=== PATIENT | male | born 1965 | race Caucasian/White ===

== ENCOUNTER 2018-03-15 23:09 | Observation (INO) ==
[2018-03-15 23:24] LABS: Basophils # 0.1 K/mm3 (0-0.2); Basophils % 1.2 % (0.1-2.0); Eosinophils # 0.3 K/mm3 (0.0-0.4); Eosinophils % 5.3 % (0.1-12.0); Hematocrit 43.6 % (42.0-52.0); Hemoglobin 15.5 g/dL (14.1-18.0); Lymphocytes # 1.9 K/mm3 (0.7-4.5); Lymphocytes % 35.8 K/mm3 (10-50); Mean Corpuscular HGB Conc 35.5 g/dL (31.8-35.4); Mean Corpuscular Hemoglobin 33.5 pg (27.0-31.2); Mean Corpuscular Volume 94.2 fl (80-94); Mean Platelet Volume 7.3 fl (7.4-10.4); Monocytes # 0.5 K/mm3 (0.1-1.0); Monocytes % 9.9 % (1.7-9.3); Neutrophils # 2.5 K/mm3 (1.8-7.8); Neutrophils % 47.8 % (37.0-80.0); Platelet Count 238 K/mm3 (142-424); Red Blood Count 4.63 M/mm3 (4.60-6.20); Red Cell Distribution Width 13.1 % (11.5-17.5); White Blood Count 5.3 K/mm3 (4.8-10.8)
[2018-03-15 23:43] LABS: Blood Urea Nitrogen 7 mg/dL (7-18); Carbon Dioxide 26 mmol/L (21.0-32.0); Chloride 93 mmol/L (98-107); Glucose 111 mg/dL (74-106); Sodium 129 mmol/L (136-145)
--- NOTE | 2018-03-16 00:28 | Emergency Department Note ---
ED Disposition Clinical Impression: Tobacco use Chest pain Qualifiers: Chest pain type: precordial pain Qualified Code(s): R07.2 - Precordial pain Disposition: Admitted as Observation Condition on Discharge: Good - Critical Care Critical Care Time: No Attestation: On 03/15/18, the high probability of a clinically significant, sudden or life threatening deterioration of the following system(s) required my full and direct attention, intervention and personal management. The time I documented below is in addition to time spent performing reported procedures but includes the following listed in this critical care notation. Medical Decision Making - Medical Records Medical records reviewed: Yes: I reviewed the patient's medical records. - Dick Inquiry Pt receiving controlled substance: No Vital Signs: 03/15/18 23:09 03/15/18 23:12 Temperature 98.3 F Temperature Source Oral Pulse Rate 80 Pulse Rate [Right Brachial] 74 Respiratory Rate 16 Blood Pressure [Right Arm] 103/58 Blood Pressure Mean [Right Arm] 73 Blood Pressure Source [Right Arm] Automatic Cuff Blood Pressure Position [Right Arm] Sitting 02 Sat by Pulse Oximetry 96 Oxygen Delivery Method Room Air - Lab Data Lab results reviewed: Yes: I reviewed the patient's lab results. Lab Results 03/15/18 23:20: WBC 5.3, RBC 4.63, Hgb 15.5, Hct 43.6, MCV 94.2 H, MCH 33.5 H, MCHC 35.5 H, RDW 13.1, Plt Count 238, MPV 7.3 L, Neut % (Auto) 47.8, Lymph % ( Auto) 35.8, [place] % (Auto) 9.9 H, Eos % (Auto) 5.3, Baso % (Auto) 1.2, Neut # ( Auto) 2.5, Lymph # (Auto) 1.9, [place] # (Auto) 0.5, Eos # (Auto) 0.3, Baso # (Auto ) 0.1 03/15/18 23:20: Sodium 129 L, Potassium 4.0, Chloride 93 L, Carbon Dioxide 26, Anion Gap 14.0, BUN 7, Creatinine 0.82, Estimated Creat Clear 87, Estimated GFR 99, Est GFR ( Amer) 120, Glucose 111 H, Troponin I < 0.02 Result diagrams: 03/15/18 23:20 03/15/18 23:20 Orders (Tests/Meds): ORDERS Category Date Time Status XR chest 2V Stat Exams 03/15/18 23:10 Taken ECG Request by /Susan Stat Y 03/15/18 23:10 Ordered - Radiology Data #1 Image(s): Chest Image Reviewed: Yes I reviewed the patient's radiology image Preliminary Findings: Abnormal (copd) - ECG Data Tracing #1 I reviewed this ECG and interpreted as documented below: Normal Sinus Rhythm: Yes Ischemic changes: non-specific ST-T wave changes Chest Pain HPI - General Chief Complaint: Chest Pain Stated Complaint: chest pain Time Seen by Provider: 03/15/18 23:20 Mode of Arrival: Ambulatory Source of Information: Patient, Significant Other, Medical Record Limitations: No Limitations Description of Symptoms (Recalled from ER Triage Doc. by RN): cp that started 9 this morning, radiating to left arm. took 325mg of asa at home. - History of Present Illness HPI narrative: pt with ongoing episodes of chest tightness over the last few weeks inc today MD complaint: chest pain indicative of cardiac Onset (ago): day(s) Duration: now resolved Activity at onset: during rest Pain location: left chest Severity: moderate Quality: tightness Associated symptoms: dyspnea Risk Factors for CAD: Family Hx of CAD, Smoking Treatments prior to or on arrival for Cardiac Chest Pain: aspirin - JEFFRY Score Non-Stemi Age of patient: Less than 65 yrs Number of risk factors for CAD: Presence of 3 or more Prior coronary artery stenosis(seen in coronary angiography): Less than 50% ST-Segment deviation on ECG (more than 1 min): Absent Prior aspirin intake: ASA intake in the last 7 days Severe anginal chest pain: Two or more episodes in last 24 hours Elevated cardiac markers(CK-MB or troponin): Absent Non-Stemi Risk Score: 3 - Related Data Home Medications Medication Instructions Recorded Confirmed No Known Home Medications 03/15/18 03/15/18 Allergies Allergy/AdvReac Type Severity Reaction Status Date / Time No Known Allergies Allergy Verified 03/15/18 23:14 [facility] History I have reviewed the patient's past medical history: Yes Medical History: Denies:: Cancer, Diabetes Mellitus Type 1, Diabetes Mellitus Type 2, MRSA Amputation: No Fractures: No - Social History Educational Level: Completed Grade School Smoking Status: Current every day smoker Tobacco Type: cigarettes Alcohol Intake: never - Psychiatric History Expresses thoughts of harming self/others: None Suicide Plan Description: No Plan ROS Obtained: Yes All systems reviewed & no additional complaints - Constitutional Constitutional: Denies fever(s) - Eyes Eyes: Denies change in vision - ENT Ears, Nose, Mouth, and Throat: Denies sore throat - Cardiovascular Cardiovascular: Reports chest pain, Reports chest pain at rest - Respiratory Respiratory: No cough, No coughing up blood - Gastrointestinal Gastrointestingal: Denies: abdominal pain - Genitourinary Male Genitourinary: Denies hematuria - Musculoskeletal Musculoskeletal: Denies joint pain, Denies joint swelling - Integumentary/Breasts Skin/Breast: Denies rash - Neurologic Neurologic: Denies seizure-like activity Physical Exam - General General appearance: in no apparent distress - Head Head exam: normocephalic - Eye Eye exam: Present: PERRL, EOMI. Absent: scleral icterus - ENT ENT exam: Present: mucous membranes moist - Neck Neck exam: Present: trachea midline - Respiratory Respiratory exam: Present: normal lung sounds bilaterally. Absent: respiratory distress - Cardiovascular Cardiovascular exam: Present: regular rate, systolic murmur. Absent: rubs, gallop - Abdominal Exam Abdominal exam: Present: soft - Extremities Exam Extremities exam: Absent: calf tenderness - Neurological Exam Neurological exam: Present: alert, oriented X3, CN II-XII intact - Psychiatric Psychiatric exam: Present: normal affect - Skin Skin exam: Absent: rash
[2018-03-16 06:57] LABS: Basophils # 0.1 K/mm3 (0-0.2); Basophils % 1.3 % (0.1-2.0); Eosinophils # 0.3 K/mm3 (0.0-0.4); Eosinophils % 6.9 % (0.1-12.0); Hematocrit 41.9 % (42.0-52.0); Hemoglobin 14.3 g/dL (14.1-18.0); Lymphocytes # 1.4 K/mm3 (0.7-4.5); Lymphocytes % 32.7 K/mm3 (10-50); Mean Corpuscular HGB Conc 34.1 g/dL (31.8-35.4); Mean Corpuscular Hemoglobin 32.4 pg (27.0-31.2); Mean Corpuscular Volume 94.8 fl (80-94); Mean Platelet Volume 7.7 fl (7.4-10.4); Monocytes # 0.5 K/mm3 (0.1-1.0); Neutrophils % 47.1 % (37.0-80.0); Platelet Count 213 K/mm3 (142-424); Red Blood Count 4.42 M/mm3 (4.60-6.20); Red Cell Distribution Width 13.2 % (11.5-17.5); White Blood Count 4.2 K/mm3 (4.8-10.8)
[2018-03-16 07:06] LABS: INR 0.98 (0.9-1.1); Prothrombin Time 10.6 seconds (9.4-11.8)
--- NOTE | 2018-03-16 07:14 | Pharmacy Consult Notes ---
[facility] Pharmacy VTE Monitoring - Patient Demographics Admission date: 03/15/18 Report Date: 03/16/18 Time: 07:14 Allergies/Adverse Reactions: Patient Allergies No Known Allergies Allergy (Verified 03/15/18 23:14) Height: 1.68 m Weight: 55.565 kg Patient Problems: Current Active Problems Chest pain (Acute) Tobacco use (Acute) - VTE Risk Labs: VTE Related Lab Results Hgb 14.3 g/dL (14.1-18.0) 03/16/18 06:19 Hct 41.9 % (42.0-52.0) L 03/16/18 06:19 Plt Count 213 K/mm3 (142-424) 03/16/18 06:19 PT 10.6 seconds (9.4-11.8) 03/16/18 06:19 INR 0.98 (0.9-1.1) 03/16/18 06:19 BUN 7 mg/dL (7-18) 03/15/18 23:20 Creatinine 0.82 mg/dL (0.70-1.30) 03/15/18 23:20 Estimated Creat Clear 87 mL/min (0-300) 03/15/18 23:20 VTE Score: 0 Clinical Trial Participant: No - Prophylaxis VTE Prophylaxis Ordered?: Yes Types of VTE Prophylaxis: TEDS Knee High
[2018-03-16 07:16] LABS: Anion Gap 16.1 mEq/L (5-15); Blood Urea Nitrogen 6 mg/dL (7-18); Carbon Dioxide 25 mmol/L (21.0-32.0); Chloride 99 mmol/L (98-107); Glucose 84 mg/dL (74-106); Potassium 4.1 mmoL/L (3.5-5.1); Sodium 136 mmol/L (136-145)
--- NOTE | 2018-03-16 08:21 | Consult Report ---
History of Present Illness Consult date: 03/16/18 Requesting physician: Pantera Ray Consult reason: chest pain Chief complaint: chest pain Additional Medical History:: 1. Tobacco use since age 22, 1 pack per day 2. Social alcohol use on the weekends 3. Family history of heart disease in his mother in her mid 60s History of present illness: 52-year-old white male with tobacco use resented to the emergency department for recurrent episodes of chest tightness, squeezing with associated shortness of breath. Symptoms have been associated with exertion and resolved with rest or aspirin use. EKG in the emergency department showed sinus rhythm with poor R -wave progression anteriorly, question anteroseptal infarct, without acute ST segment changes. Patient was admitted overnight due to improvement/resolution of symptoms with nitroglycerin paste. No further episodes of chest pain or shortness of breath overnight. Cardiac troponins have been normal overnight. Cardiology consulted for further evaluation recommendations. [facility] History Medical History: Denies:: Cancer, Diabetes Mellitus Type 1, Diabetes Mellitus Type 2, MRSA Amputation: No Fractures: No - *Social History Educational Level: Completed Grade School Smoking Status: Current every day smoker Tobacco Type: cigarettes # Packs/Day (cigarettes): 1 Alcohol Intake: current Alcohol Intake Frequency:: a few times a week Occupational Status: employed - Psychiatric History Expresses thoughts of harming self/others: None Suicide Plan Description: No Plan Meds Home Medications Medication Instructions Recorded Confirmed Type No Known Home Medications 03/15/18 03/15/18 History Allergies Allergy/AdvReac Type Severity Reaction Status Date / Time No Known Allergies Allergy Verified 03/15/18 23:14 Review of Systems - *Cardiovascular Reports chest pain, Reports shortness of breath with activity - *Respiratory Reports shortness of breath with activity - *Gastrointestinal Denies abdominal pain - *Musculoskeletal Comments: Some right wrist discomfort after recent injury while working on a car. - *Neurologic Denies seizure-like activity Exam Vital signs and Labs for Last 24 Hours: Temp Pulse Resp BP Pulse Ox 97.7 F 78 15 113/66 96 03/16/18 04:00 03/16/18 04:00 03/16/18 04:00 03/16/18 04:00 03/16/18 04:00 Laboratory Results - last 24 hr 03/15/18 23:20: WBC 5.3, RBC 4.63, Hgb 15.5, Hct 43.6, MCV 94.2 H, MCH 33.5 H, MCHC 35.5 H, RDW 13.1, Plt Count 238, MPV 7.3 L, Neut % (Auto) 47.8, Lymph % ( Auto) 35.8, [place] % (Auto) 9.9 H, Eos % (Auto) 5.3, Baso % (Auto) 1.2, Neut # ( Auto) 2.5, Lymph # (Auto) 1.9, [place] # (Auto) 0.5, Eos # (Auto) 0.3, Baso # (Auto ) 0.1 03/15/18 23:20: Sodium 129 L, Potassium 4.0, Chloride 93 L, Carbon Dioxide 26, Anion Gap 14.0, BUN 7, Creatinine 0.82, Estimated Creat Clear 87, Estimated GFR 99, Est GFR ( Amer) 120, Glucose 111 H, Troponin I < 0.02 03/16/18 01:10: Troponin I < 0.02 03/16/18 04:00: Troponin I < 0.02 03/16/18 06:19: WBC 4.2 L, RBC 4.42 L, Hgb 14.3, Hct 41.9 L, MCV 94.8 H, MCH 32.4 H, MCHC 34.1, RDW 13.2, Plt Count 213, MPV 7.7, Neut % (Auto) 47.1, Lymph % (Auto) 32.7, [place] % (Auto) 12.0 H, Eos % (Auto) 6.9, Baso % (Auto) 1.3, Neut # (Auto) 2.0, Lymph # (Auto) 1.4, [place] # (Auto) 0.5, Eos # (Auto) 0.3, Baso # ( Auto) 0.1 03/16/18 06:19: PT 10.6, INR 0.98 03/16/18 06:19: Sodium 136, Potassium 4.1, Chloride 99, Carbon Dioxide 25, Anion Gap 16.1 H, BUN 6 L, Creatinine 0.67 L, Estimated Creat Clear 104, Estimated GFR 126, Est GFR ( Amer) 152 D, Glucose 84 D, Magnesium 2.2, Troponin I < 0.02 I & O for Last 24 hours: Intake & Output 03/13/18 03/14/18 03/15/18 03/16/18 11:59 11:59 11:59 11:59 Weight 122 lb 8 oz - *Routine Neck Exam Absent: JVD, carotid bruit - *Routine Respiratory Exam Present: decreased breath sounds, rhonchi, diminished air movement - *Routine Cardiovascular Exam Present: RRR. Absent: murmur, gallop, rubs - *Routine Extremities Exam Absent: edema - *Routine Neurological Exam Present: alert, oriented X3, moving all extremities Assessment and Plan (1) Chest pain Current visit: Yes Status: Acute Qualifiers: Chest pain type: precordial pain Qualified Code(s): R07.2 - Precordial pain Category: Medical Code(s): R07.9 - Chest pain, unspecified (2) Tobacco use Current visit: Yes Status: Acute Category: Social Hx Code(s): Z72.0 - Tobacco use - Assessment and plan all Dx Assessment and Plan for all problems:: 1. Chest pain with normal troponins with abnormal EKG. Patient does not take any medication on a regular basis and blood pressure is well controlled with systolic blood pressure in the 100-110 mmHg reading which does not allow for antianginal medication use. With the patient's tobacco use history and family history of heart disease with his exertion related symptoms to resolve with rest , aspirin or nitroglycerin, then would recommend proceeding with left heart catheterization. Risk and benefits discussed with patient and he agrees to proceed today. 2. Further recommendations to follow pending above.
--- NOTE | 2018-03-16 11:57 | Cardiology Report ---
PROCEDURE: 2-D M-mode and color Doppler study INDICATIONS FOR THE TEST: Chest pain+ COPD Heart Murmur Tobacco Smoking+ Palpitations Fatigue Syncope Edema Hypertension Diabetes Mellitus Rheumatic Fever SOB+MORGAN Obesity Hyperlipidemia Family History HD Additional History PATIENT INFORMATION HEIGHT:66 WEIGHT:126 GENDER: Male B/P:103/58 2-D/M-MODE INTERPRETATION: 2-D MEASUREMENTS OBSERVED VALUES IN CMS Right Ventricular Dimension (RVDd) 2.5 Interventricular Septum (Thickness)(IVsd) 0.9 Left Ventricular Internal Dimensions(LVIDd) 4.8 Left Ventricular Posterior Wall (Thickness)(LVPWd) 0.6 Aortic Root 2.2 Aortic Cusp Separation 1.8 Left Atrial Dimensions (LAD) 3.7 2D 1. Left atrium is normal size, left ventricle is normal size, there is no concentric left ventricular hypertrophy, visually estimated ejection fraction 55% with no obvious regional wall motion abnormality. 2. The right atrium and right ventricle are normal size and contractility. 3. The aortic, mitral and tricuspid valve are grossly normal. 4. The pulmonic valve is poorly visualized. 5. No significant pericardial effusion noted. DOPPLER INTERROGATION: Doppler interrogation of the aortic, mitral and tricuspid valvular presence of mild mitral and tricuspid regurgitation, tricuspid and jet velocity is insufficient for calculation of the right ventricular systolic pressure, diastolic parameters are within normal range. CONCLUSION: 1. Normal left ventricular size, preserved left ventricular systolic function, visually estimated ejection fraction 55% with no obvious regional wall motion abnormality, diastolic parameters are within normal range. 2. Mild mitral and tricuspid regurgitation. 3. No significant pericardial effusion noted.
--- NOTE | 2018-03-16 15:37 | H&P/Discharge Summary ---
General - General Admission date:: 03/16/18 Discharge date: 03/16/18 *Admission Date: 03/15/18 *Chief complaint: chest pain *History of present illness: 52-year-old white male with tobacco use resented to the emergency department for recurrent episodes of chest tightness, squeezing with associated shortness of breath. Symptoms have been associated with exertion and resolved with rest or aspirin use. EKG in the emergency department showed sinus rhythm with poor R -wave progression anteriorly, question anteroseptal infarct, without acute ST segment changes. Patient was admitted overnight due to improvement/resolution of symptoms with nitroglycerin paste. No further episodes of chest pain or shortness of breath overnight. Cardiac troponins have been normal overnight. Cardiology consulted for further evaluation recommendations. [facility] History I have reviewed the patient's past medical history: Yes Medical History: Denies:: Cancer, Diabetes Mellitus Type 1, Diabetes Mellitus Type 2, MRSA Amputation: No Fractures: No - *Social History Educational Level: Completed Grade School Smoking Status: Current every day smoker Tobacco Type: cigarettes # Packs/Day (cigarettes): 1 Alcohol Intake: current Alcohol Intake Frequency:: a few times a week Occupational Status: employed - Psychiatric History Expresses thoughts of harming self/others: None Suicide Plan Description: No Plan Review of Systems - Review of Systems Review of systems:: pertinent systems reviewed and negative unless documented below - Constitutional Denies fever(s) - Eyes Denies change in vision - ENT Denies change in voice - *Cardiovascular Reports chest pain - *Respiratory Denies chest congestion - *Gastrointestinal Denies vomiting - *Genitourinary Denies urinary urgency - *Musculoskeletal Denies tingling - Integumentary/Breasts Denies rash - *Neurologic Denies seizure-like activity - Psychiatric Denies anxiety - Endocrine Denies flushing - Hematologic/Lymphatic Denies enlarged lymph nodes - Allergic/Immunologic Denies lip swelling Exam Vital signs and Labs for Last 24 Hours: Temp Pulse Resp BP Pulse Ox 97.4 F L 78 18 114/73 96 03/16/18 15:25 03/16/18 15:25 03/16/18 15:25 03/16/18 15:25 03/16/18 15:25 Laboratory Results - last 24 hr 03/15/18 23:20: WBC 5.3, RBC 4.63, Hgb 15.5, Hct 43.6, MCV 94.2 H, MCH 33.5 H, MCHC 35.5 H, RDW 13.1, Plt Count 238, MPV 7.3 L, Neut % (Auto) 47.8, Lymph % ( Auto) 35.8, [place] % (Auto) 9.9 H, Eos % (Auto) 5.3, Baso % (Auto) 1.2, Neut # ( Auto) 2.5, Lymph # (Auto) 1.9, [place] # (Auto) 0.5, Eos # (Auto) 0.3, Baso # (Auto ) 0.1 03/15/18 23:20: Sodium 129 L, Potassium 4.0, Chloride 93 L, Carbon Dioxide 26, Anion Gap 14.0, BUN 7, Creatinine 0.82, Estimated Creat Clear 87, Estimated GFR 99, Est GFR ( Amer) 120, Glucose 111 H, Troponin I < 0.02 03/16/18 01:10: Troponin I < 0.02 03/16/18 04:00: Troponin I < 0.02 03/16/18 06:19: WBC 4.2 L, RBC 4.42 L, Hgb 14.3, Hct 41.9 L, MCV 94.8 H, MCH 32.4 H, MCHC 34.1, RDW 13.2, Plt Count 213, MPV 7.7, Neut % (Auto) 47.1, Lymph % (Auto) 32.7, [place] % (Auto) 12.0 H, Eos % (Auto) 6.9, Baso % (Auto) 1.3, Neut # (Auto) 2.0, Lymph # (Auto) 1.4, [place] # (Auto) 0.5, Eos # (Auto) 0.3, Baso # ( Auto) 0.1 03/16/18 06:19: PT 10.6, INR 0.98 03/16/18 06:19: Sodium 136, Potassium 4.1, Chloride 99, Carbon Dioxide 25, Anion Gap 16.1 H, BUN 6 L, Creatinine 0.67 L, Estimated Creat Clear 104, Estimated GFR 126, Est GFR ( Amer) 152 D, Glucose 84 D, Magnesium 2.2, Troponin I < 0.02 I & O for Last 24 hours: Intake & Output 05/0903/15/18 03/16/18 03/17/18 11:59 11:59 11:59 11:59 Weight 122 lb 8 oz - Constitutional no acute distress - *Routine HEENT Exam Head: Present: normocephalic Eye: Present: PERRL ENT: Present: mucous membranes moist - *Routine Respiratory Exam Present: CTA bilaterally - *Routine Cardiovascular Exam Present: RRR - *Routine Abdominal Exam Present: soft, normoactive bowel sounds - *Routine Skin Exam Present: intact - *Routine Neurological Exam Present: alert, oriented X3, CN II-XII intact - Routine Psychiatric Exam Present: normal affect, normal thought process Hospital Course Hospital Course: echo:CONCLUSION: 1. Normal left ventricular size, preserved left ventricular systolic function, visually estimated ejection fraction 55% with no obvious regional wall motion abnormality, diastolic parameters are within normal range. 2. Mild mitral and tricuspid regurgitation. 3. No significant pericardial effusion noted. heart cath: ANGIOGRAPHIC RESULTS: 1. The left main artery normal 2. The left anterior descending artery normal 3. The circumflex artery normal 4. The right coronary artery dominant normal 5. The DOZIER ventriculogram reveals normal 65% 6. The left ventricular end-diastolic pressure 10 mmHg IMPRESSION: 1. Normal coronary arteries 2. Normal ejection fraction 3. Normal left ventricular end-diastolic pressure PLAN: 1. Evaluation noncardiac chest pain 2. Risk factor modification Results Labs on day of discharge: Labs from last 24 hours 03/16/18 03/16/18 03/16/18 06:19 06:19 06:19 WBC 4.2 L RBC 4.42 L Hgb 14.3 Hct 41.9 L MCV 94.8 H MCH 32.4 H MCHC 34.1 RDW 13.2 Plt Count 213 MPV 7.7 Neut % (Auto) 47.1 Lymph % (Auto) 32.7 [place] % (Auto) 12.0 H Eos % (Auto) 6.9 Baso % (Auto) 1.3 Neut # (Auto) 2.0 Lymph # (Auto) 1.4 [place] # (Auto) 0.5 Eos # (Auto) 0.3 Baso # (Auto) 0.1 PT 10.6 INR 0.98 Sodium 136 Potassium 4.1 Chloride 99 Carbon Dioxide 25 Anion Gap 16.1 H BUN 6 L Creatinine 0.67 L Estimated Creat Clear 104 Estimated GFR 126 Est GFR ( Amer) 152 D Glucose 84 D Magnesium 2.2 Troponin I < 0.02 03/16/18 03/16/18 03/15/18 04:00 01:10 23:20 WBC RBC Hgb Hct MCV MCH MCHC RDW Plt Count MPV Neut % (Auto) Lymph % (Auto) [place] % (Auto) Eos % (Auto) Baso % (Auto) Neut # (Auto) Lymph # (Auto) [place] # (Auto) Eos # (Auto) Baso # (Auto) PT INR Sodium 129 L Potassium 4.0 Chloride 93 L Carbon Dioxide 26 Anion Gap 14.0 BUN 7 Creatinine 0.82 Estimated Creat Clear 87 Estimated GFR 99 Est GFR ( Amer) 120 Glucose 111 H Magnesium Troponin I < 0.02 < 0.02 < 0.02 03/15/18 23:20 WBC 5.3 RBC 4.63 Hgb 15.5 Hct 43.6 MCV 94.2 H MCH 33.5 H MCHC 35.5 H RDW 13.1 Plt Count 238 MPV 7.3 L Neut % (Auto) 47.8 Lymph % (Auto) 35.8 [place] % (Auto) 9.9 H Eos % (Auto) 5.3 Baso % (Auto) 1.2 Neut # (Auto) 2.5 Lymph # (Auto) 1.9 [place] # (Auto) 0.5 Eos # (Auto) 0.3 Baso # (Auto) 0.1 PT INR Sodium Potassium Chloride Carbon Dioxide Anion Gap BUN Creatinine Estimated Creat Clear Estimated GFR Est GFR ( Amer) Glucose Magnesium Troponin I - Additional Comments rounded with Dr. Ray all orders per Dr. Ray DS: Diagnosis - Discharge Diagnosis (1) Chest pain Status: Acute (2) Tobacco use Status: Acute Discharge Medications Discharge Medications: Home Medications Medication Instructions Recorded Confirmed Type No Known Home Medications 03/15/18 03/15/18 History Disposition Disposition: Home, Self-Care
[2018-03-16 16:28] VITALS: BP 115/73
== END 2018-03-16 17:15 | disposition home or self-care (01) ==
LOC: ER 23:09 → 2ND 23:09
PROVIDERS: ADMIT Emergency Medicine; ATTEND Emergency Medicine

== ENCOUNTER → 2018-04-19 11:00 | Outpatient (CLI) | payer MEDICARE, MEDICAID, SELFPAY ==
--- NOTE | 2018-04-19 11:02 | US_ITS ---
US abdomen limited History: Ordering Physician:Pantera Ray MD Patient Age: 52 years Comparison:None Findings: Pancreas:Unremarkable. No obvious mass or abnormal fluid collection. No ductal dilatation Liver:No focal liver lesions demonstrated. Homogeneous echogenicity. No intrahepatic biliary ductal dilatation evident. There is increased echogenicity of the liver consistent with fatty liver Right Kidney:Unremarkable. Normal size and echogenicity. No hydronephrosis Gallbladder:No gallstones, gallbladder wall thickening, pericholecystic fluid, or biliary dilatation. Impression: 1. Negative gallbladder ultrasound. 2. Fatty liver
== END ==
PROVIDERS: PCP Emergency Medicine; Visit Provider Emergency Medicine
DX: R10.11 Right upper quadrant pain (principal)
CPT/HCPCS: 76705

== ENCOUNTER → 2018-05-14 10:31 | Outpatient (CLI) | payer MEDICARE, MEDICAID, SELFPAY ==
--- NOTE | 2018-05-14 10:32 | NM_ITS ---
NM hepatobiliary wo pharm HISTORY: Abdominal pain, knee right upper quadrant pain, nausea ITS.REASON: RUQ Pain ORDERING PHYSICIAN: COLEMAN Diehl PATIENT AGE: 52 years COMPARISON: None DOSE: 8.30 MCI TC Choletec Inj into RT ANT Fatty Meal: Ensure. No pain reported after fatty meal FINDINGS: Homogeneous activity is present within the hepatic parenchyma. Activity is present in the gallbladder by 10 minutes. Activity is present in the small bowel by 45 minutes. The gallbladder ejection fraction is calculated to be 20% The patient did not report pain or other symptoms during CCK infusion. IMPRESSION: 1. No evidence of common or cystic duct obstruction. 2. Low gallbladder ejection fraction. Please correlate with patient's clinical symptoms regarding possible gallbladder dyskinesia
== END ==
PROVIDERS: PCP Emergency Medicine; Visit Provider Physician Assistant
DX: R10.11 Right upper quadrant pain (principal)
CPT/HCPCS: 78226; A9537

== ENCOUNTER 2022-12-07 17:44 | Emergency (ER) | payer MEDICARE, MEDICAID, SELFPAY ==
--- NOTE | 2022-12-07 18:04 | XR_ITS ---
PROCEDURE INFORMATION: Exam: XR Left Wrist Exam date and time: 12/07/2022 6:28 PM Age: 57 years old Clinical indication: Injury or trauma; Fall; Blunt trauma (contusions or hematomas); Wrist; Left TECHNIQUE: Imaging protocol: Radiologic exam of the Left wrist. Views: 3 or more views. COMPARISON: CR XR HAND LT MIN 3V 12/07/2022 6:25 PM FINDINGS: Bones/joints: No acute fracture or malalignment. Carpal arcs are well-maintained. 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 Soft tissues: Soft tissue edema noted. IMPRESSION: 1. No evidence of acute osseous abnormality in the left wrist. 2. 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
--- NOTE | 2022-12-07 18:04 | XR_ITS ---
PROCEDURE INFORMATION: Exam: XR Left Hand Exam date and time: 12/07/2022 6:25 PM Age: 57 years old Clinical indication: Injury or trauma; Fall; Blunt trauma (contusions or hematomas); Hand; Left; Additional info: Pain TECHNIQUE: Imaging protocol: Radiologic exam of the Left hand. Views: 3 or more views. COMPARISON: No relevant prior studies available. FINDINGS: Bones/joints: Acute nondisplaced fracture at the base of the 3rd distal phalanx. No evidence of intra-articular extension or avulsion injury. Soft tissues: Soft tissue edema surrounds the distal 3rd finger. IMPRESSION: Acute nondisplaced fracture at the base of the 3rd distal phalanx.
[2022-12-07 18:10] VITALS: BP 178/96; PULSE 90; RESP 20; TEMP 36.8; O2SAT 97; BMI 21.7
--- NOTE | 2022-12-07 18:21 | EXP.UTC ---
Discharge Plan Disposition Patient Disposition: Home, Self-Care Condition: Good Prescriptions Prescriptions: New ibuprofen [ibuprofen] 600 mg tablet 600 mg PO Q6HP PRN (Reason: Mild Pain) Qty: 30 0RF Referrals Follow up/Referrals: Martin Layne DO [Staff Physician] - See instructions Pantera Ray MD [Primary Care Provider] - See instructions Activity Restrictions/Add. Instructions Additional Instructions/Restrictions: Rest the extremity, apply ice for 15 minutes as tolerated three or four times per day, Elevate the extremity as tolerated while you are resting. Take ibuprofen for pain. I sent in a prescription to your pharmacy. Follow up with Dr. Layne (orthopedics). I put in a referral but you need to call his office and schedule an appointment. Follow up with your regular doctor. GO TO THE ER FOR ANY WORSENING SYMPTOMS Clinical Impressions Clinical Impression: Hand fracture, left, Contact dermatitis Discharge ED Provider: Yosef Pandya [facility] General Stated complaint: AO 0131@AT HOME FELL INJUED l hNAD Time Seen by Provider: 12/07/22 18:21 History of Present Illness Provider Complaint: He states that he fell at home 2 days ago. He came down on his left hand. Since then he has had left hand pain and swelling. Related Data Previous Rx's Medication Instructions Recorded ibuprofen 600 mg tablet 600 mg PO Q6HP PRN Mild Pain #30 12/07/22 tabs Allergies Allergy/AdvReac Type Severity Reaction Status Date / Time No Known Allergies Allergy Verified 12/07/22 19:08 [facility] Disclaimer: The information contained in this section may have been updated after the patient was seen, as this information can be updated by other users. Social History Smoking Status: Current every day smoker tobacco type: cigarettes packs per day: 1 alcohol intake: current counseling provided: provider counseling substance use type: denies use current occupational status: employed Travel in the last 8 weeks: None ROS Obtained: Yes All systems reviewed & no additional complaints except as documented Constitutional Constitutional: Denies chills and Denies fever(s) Integumentary/Breasts Skin/Breast: Denies redness, Denies rash and Denies wounds Neurologic Neurologic: Denies paresthesias Physical Exam General General appearance: alert and in no apparent distress Head Head exam: atraumatic, normocephalic and normal inspection Eye Eye exam: Present normal appearance, PERRL and EOMI ENT ENT exam: Present normal exam, normal oropharynx, mucous membranes moist, TM's normal bilaterally and normal external ear exam Neck Neck exam: Present normal inspection, full ROM and trachea midline; Absent meningismus or lymphadenopathy Chest Chest inspection: Present normal inspection and symmetric chest wall rise; Absent tenderness Respiratory Respiratory exam: Present normal lung sounds bilaterally; Absent respiratory distress Cardiovascular Cardiovascular exam: Present regular rate and normal rhythm; Absent JVD Abdominal Exam Abdominal exam: Present soft and normal bowel sounds; Absent distention, tenderness or guarding Extremities Exam Extremities exam: Present normal capillary refill; Absent calf tenderness Expanded Upper Extremity Exam Left: Elbow exam: Present normal inspection and full ROM; Absent tenderness Forearm/Wrist exam: Present full ROM, tenderness and swelling; Absent abrasion, laceration, ecchymosis, deformity, crepitus, dislocation, erythema, tenderness over anatomical snuff box or pain with axial thumb loading Hand exam: Present tenderness and swelling; Absent full ROM, abrasion, laceration, skin avulsion, ecchymosis, deformity, crepitus, dislocation, erythema, amputation, nail avulsion or subungual hematoma Neuromotor exam: Normal wrist extension, thumb opposition, thumb IP flexion and thumb adduction Neurose
[2022-12-07 19:57] VITALS: BP 178/96; PULSE 90; RESP 20; TEMP 36.8; O2SAT 97
== END 2022-12-07 19:49 | disposition home or self-care (01) ==
PROVIDERS: Emergency Provider Nurse Practitioner Family; PCP Emergency Medicine
DX: S62.643A Nondisplaced fracture of proximal phalanx of left middle finger, initial encounter for closed fracture (principal); W19.XXXA Unspecified fall, initial encounter; Y92.009 Unspecified place in unspecified non-institutional (private) residence as the place of occurrence of the external cause
CPT/HCPCS: 29125; 73110; 73130; 99212; 99213; G0463

== ENCOUNTER 2022-12-13 15:18 | Outpatient (RCR) | payer MEDICARE, MEDICAID, SELFPAY | END 2022-12-13 16:30 | disposition home or self-care (01) | LOC: OT 15:18 | PROVIDERS: Visit Provider Orthopaedic Surgery | DX: M25.532 Pain in left wrist (principal); S62.92XA Unspecified fracture of left hand, initial encounter for closed fracture; S69.92XA Unspecified injury of left wrist, hand and finger(s), initial encounter ==

== ENCOUNTER 2025-03-05 14:10 | Emergency (ER) | payer MEDICARE, MEDICAID, SELFPAY ==
--- NOTE | 2025-03-05 14:11 | ECG_ITS ---
APPROVED REPORT Exam: Resting ECG HR:95 bpm ECG Measurements Heart Rate 95 AXES ME 157 P 77 QRSd 86 QRS 76 QT 344 T 54 QTc [address]ressions without reciprocal elevations Electronically signed by : ROBB BEAL, 03/06/2025 11:07:03
[2025-03-05 14:15] VITALS: BP 225/117; PULSE 93; RESP 20; TEMP 36.9; O2SAT 98; BMI 26.6
--- NOTE | 2025-03-05 14:18 | [facility].EDCP ---
Discharge Plan Disposition Patient Disposition: Home, Self-Care Condition: Good Prescriptions Prescriptions: No Action No Known Home Medications Referrals Follow up/Referrals: Shane Giordano DO [Staff Physician] - See instructions Provider,MD Jessica [Primary Care Provider] - See instructions Juan Ramon Mancini MD [Staff Physician] - See instructions Activity Restrictions/Add. Instructions Additional Instructions/Restrictions: As we discussed please call make your appointment with both Dr. Giordano for primary care and with cardiology. If you have any continuing worsening or new [place] symptoms return to the ER as needed. Clinical Impressions Clinical Impression: Hypertension, uncontrolled Chest pain Qualifiers: Chest pain type: precordial pain Qualified Code(s): R07.2 - Precordial pain Print Language Print Language: Frisian Discharge ED Provider: Merrick Crenshaw HPI <COLEMAN David - Last Filed: 03/05/25 16:21> General Chief Complaint: Chest Pain Stated Complaint: Chest Pain Time Seen by Provider: 03/05/25 14:16 History of Present Illness HPI narrative: Patient presents for evaluation of chest pain. Patient states he woke up this morning with left-sided chest pain that radiated down his right arm. He has had chest pain intermittently over the years and approximately 4 years ago underwent heart cath that did not require intervention. Patient states that he woke up about 730 this morning and the chest pain has been continuous with waxing and waning in intensity but never completely gone away which is unusual. There are no aggravating or relieving factors. Patient does not currently have a PCP he is on no home medications. He denies shortness of breath fever chills hemoptysis hematochezia melena nausea vomiting diarrhea alcohol or illicit or street drug use. Related Data Home Medications ?Medication ?Instructions ?Recorded ?Confirmed No Known Home Medications 03/05/25 03/05/25 Allergies Allergy/AdvReac Type Severity Reaction Status Date / Time No Known Allergies Allergy Verified 03/05/25 15:44 PFSH <COLEMAN David - Last Filed: 03/05/25 16:21> [facility] Disclaimer: The information contained in this section may have been updated after the patient was seen, as this information can be updated by other users. Social History Smoking Status: Current every day smoker tobacco type: cigarettes packs per day: 1 alcohol intake: current alcohol intake frequency: a few times a week counseling provided: provider counseling substance use type: denies use current occupational status: employed Travel in the last 8 weeks?: None Have you lived/traveled outside [place] in past 30 days?: No Contact w/someone who lives/traveled outside US past 30 days?: No Exposure to someone with infectious disease in past 14 days?: No Do you have a fever (greater than 100.4 F or 38 C)?: No Have you tested positive for COVID-19?: No Exposed to someone with COVID-19 in past 14 days?: No Do you have a sore throat?: No Do you have a cough?: No Do you have any weakness?: No Do you have any diarrhea?: No Are you experiencing any unusual bleeding?: No Do you have any muscle aches/pain?: No Do you have any abdominal pain?: No Are you experiencing loss of taste or smell?: No Other Medical History Have you received the Flu Vaccine for this season: No Have you received the Pneumonia Vaccine: No <COLEMAN David - Last Filed: 03/05/25 16:21> ROS Obtained: Yes Systems reviewed as appropriate & no additional complaints except as documented Physical Exam <COLEMAN David - Last Filed: 03/05/25 16:21> General General appearance: alert and in no apparent distress Respiratory Respiratory exam: Present normal lung sounds bilaterally Cardiovascular Cardiovascular exam: Present regular rate Neurological Exam Neurological exam: Present alert and oriented X3 HEART Score <COLEMAN aDvid - Last Filed: 03/05/25 16:21> HEART Score History (anamnesis): Slightly suspicious ECG: Normal Age: 45-65 years Risk factors: 1-2 risk factors Troponin: </= normal limit HEART Score: 2 <Merrick Crenshaw MD - Last Filed: 03/05/25 15:15> HEART Score HEART Score assessment performed?: No <Raffy Goins MD - Last Filed: 03/05/25 16:24> HEART Score HEART Score: 2 Critical Care <Merrick Crenshaw MD - Last Filed: 03/05/25 15:15> Critical Care Time Critical Care Time: No Medical Decision Making <COLEMAN David - Last Filed: 03/05/25 16:21> Medical Records Medical records reviewed: Yes I reviewed the patient's medical records. Vital Signs Vital Signs: 03/05/25 14:15 03/05/25 14:30 03/05/25 15:01 Temperature 98.4 F Temperature Source Oral Pulse Rate 82 Pulse Rate [Left Radial] 93 H Respiratory Rate 20 27 H 18 Blood Pressure 198/109 H 182/103 H Blood Pressure [Right Arm] 225/117 H Blood Pressure Mean [Right Arm] 153 Blood Pressure Source Blood Pressure Position 02 Sat by Pulse Oximetry 98 99 Oxygen Delivery Method Room Air Room Air 03/05/25 15:30 03/05/25 16:08 Temperature 98.1 F Temperature Source Oral Pulse Rate 75 77 Pulse Rate [Left Radial] Respiratory Rate 12 20 Blood Pressure 179/101 H 185/100 H Blood Pressure [Right Arm] Blood Pressure Mean [Right Arm] Blood Pressure Source Automatic Cuff Blood Pressure Position Supine 02 Sat by Pulse Oximetry 98 Oxygen Delivery Method Room Air Room Air Lab Data Lab results reviewed: Yes I reviewed the patient's lab results. Labs: Lab Results 03/05/25 14:15: WBC 6.7, RBC 4.71, Hgb 15.1, Hct 42.6, MCV 90.4, MCH 32.1 H, MCHC 35.4, RDW 12.6, Plt Count 293, MPV 9.3, Neut % (Auto) 73.3, Lymph % (Auto) 10.8, Keith % (Auto) 13.5 H, Eos % (Auto) 1.3, Baso % (Auto) 0.7, Neut # (Auto) 4.9, Lymph # (Auto) 0.7, Keith # (Auto) 0.9, Eos # (Auto) 0.1, Baso # (Auto) 0.1, D-Dimer 0.64 H, Sodium 127 L, Potassium 3.8, Chloride 94 L, Carbon Dioxide 27, Anion Gap 9.8, BUN 5 L, Creatinine 0.70, Estimated Creat Clear 131, Estimated GFR 116, Est GFR ( Amer) 141, Glucose 134 H, Calcium 9.0, Magnesium 1.9, Total Bilirubin 1.5 H, AST 56, ALT 44, Alkaline Phosphatase 74, Troponin I < 0.01, NT-Pro-B Natriuret Pep 46.9, Total Protein 8.3 H, Albumin 5.2 H, Globulin 3.1, Albumin/Globulin Ratio 1.7, Procalcitonin 0.032, TSH 1.22, Free T4 Index 2.2 L, Thyroxine (T4) 6.0, T3 Uptake 37, Plasma/Serum Alcohol < 10 03/05/25 15:17: Urine Opiates Screen Negative, Urine Methadone Screen Negative, Ur Barbituates Screen Negative, Ur Phencyclidine Scrn Negative, Ur Amphetamines Screen Negative, U Benzodiazepines Scrn Negative, Urine Cocaine Screen Negative, U Marijuana (THC) Screen Negative 03/05/25 15:19: Urine Color Yellow, Urine Appearance Clear, Urine pH 7.5, Ur Specific [place] 1.015, Urine Protein Negative, Urine Glucose (UA) Negative, Urine Ketones Negative, Urine Blood Negative, Urine Nitrate Negative, Urine Bilirubin Negative, Urine Urobilinogen 0.2, Ur Leukocyte Esterase Negative, Urine RBC Occasional, Urine WBC Occasional, Ur Squamous Epith Cells Occasional 03/05/25 15:35: SARS-CoV-2 (PCR) Not detected, Influenza A Untype (PCR) Not detected, Influenza Type B (PCR) Not detected 03/05/25 14:15 03/05/25 14:15 Response Orders (Tests/Meds): ED MEDICATIONS Discontinued Medications Generic Name Dose Route Start Last Admin Trade Name Freq PRN Reason Stop Dose Admin Acetaminophen 1,000 mg 03/05/25 14:19 03/05/25 14:29 Acetaminophen 500mg Tab PO 03/05/25 14:20 1,000 mg ONCE ONE Administration Diazepam 2.5 mg 03/05/25 14:19 03/05/25 14:29 Diazepam 5mg Tablet PO 03/05/25 14:20 2.5 mg ONCE ONE Administration Sodium Chloride 1,000 mls @ 999 mls/hr 03/05/25 14:19 03/05/25 14:30 Sod Chlor 0.9% 1000ml Bag IV 03/05/25 15:19 999 mls/hr .Q1H1M ONE Administration Iopamidol 70 ml 03/05/25 15:21 03/05/25 15:22 Iopamidol-370 (76%);100ml Bottle IV 03/05/25 15:22 70 ml ONCE ONE Administration Ketorolac Tromethamine 15 mg 03/05/25 14:19 03/05/25 14:29 Ketorolac 30mg/Ml Vial IV 03/05/25 14:20 15 mg ONCE ONE Administration Ondansetron HCl 4 mg 03/05/25 14:19 03/05/25 14:29 Ondansetron 4mg/2ml Vial IV 03/05/25 14:20 4 mg ONCE ONE Administration Sodium Chloride 10 ml 03/05/25 15:21 03/05/25 15:22 Sodium Chloride 0.9% 10ml Syr (Rad Only) IV 03/05/25 15:22 10 ml ONCE ONE Administration Sodium Chloride 50 ml 03/05/25 15:21 03/05/25 15:22 0.9 % Sodium Chloride 50 Ml Vial IV 03/05/25 15:22 50 ml ONCE ONE Administration ORDERS Category Date Time Status CT angio chest PE protocol Stat Cat Scan 03/05/25 15:14 Completed Chest XR 2 view (NOT portable) [XR chest 2V] Stat Exams 03/05/25 14:19 Completed BNP [NT Pro Brain Natriuretic Pep.] Stat Lab 03/05/25 14:15 Completed Blood alcohol [Ethyl Alcohol] Stat Lab 03/05/25 14:15 Completed CBC w/Auto Diff [Complete Blood Count Auto Diff] Stat Lab 03/05/25 14:15 Completed CMP [Comprehensive Metabolic Panel] Stat Lab 03/05/25 14:15 Completed D-Dimer Stat Lab 03/05/25 14:15 Completed HIV Combo Stat Lab 03/05/25 14:15 Received Hepatitis C Ab Qual. W/ RFX Stat Lab 03/05/25 14:15 Received Magnesium Stat Lab 03/05/25 14:15 Completed Procalcitonin Stat Lab 03/05/25 14:15 Completed Rapid PCR Covid and Flu A/B Stat Lab 03/05/25 15:35 Completed Thyroid Panel Stat Lab 03/05/25 14:15 Completed Trop I [Troponin I] Stat Lab 03/05/25 14:15 Completed Troponin I Q3H Lab 03/05/25 17:30 Ordered Troponin I Q3H Lab 03/05/25 20:30 Ordered UA [Urinalysis and Microscopic] Stat Lab 03/05/25 15:19 Completed UDS [Drug Screen,Urine] Stat Lab 03/05/25 15:17 Completed MDM Narrative Medical Decision Narrative: The patient was placed in observation status at 1510. Medical necessity for observational status is [serial troponins, observation for headache, intractable pain requiring repeat doses of medications, asthma exacerbation with muIn summary patient is a 59-year-old male who presents to the emergency department for evaluation of chest pain. Patient is initially significantly hypertensive with a blood pressure 225/117 with a heart rate of 93 breathing 20 times a minute satting at 98% on room air normal sinus rhythm on the bedside monitor upon arrival, and afebrile at 98.4. Physical exam is remarkable for Omar Coma Score 15, patient does appear to be slightly nervous but breath sounds clear and equal bilaterally to the bases without adventitious sounds cardiovascular's S1-S2 regular rate and rhythm without murmurs gallops rubs or thrills or dependent edema noted, abdomen soft nontender no rebound or guarding no rigidity. Bowel sounds normal active. Patient has no reproducible chest pain with palpation.. Differential diagnosis includes ACS versus hypertension emergency versus PE versus uncontrolled anxiety versus panic attack versus pneumonia etc. Initial workup will be conducted with hematologic labs twelve-lead EKG plain film chest x-ray CT PE protocol. Initial interventions include Tylenol Toradol Zofran 2.5 mg one-time dose of Valium. Initial workup reviewed by me shows that his hematologic labs are significant for normal white count normal H&H with no neutrophilic shift, sodium slightly low at 127 but his troponin is undetectable NT proBNP is 46.9 urinalysis is bland urine drug screen is negative alcohol is negative and my informal interpretation of his CT PE protocol shows no evidence of thrombus or acute intrathoracic process prior to radiology read. Please see final read for formal interpretation.. Upon repeat evaluation patient reported complete resolution of his symptoms however he was still remains hypertensive at 185/100. Given this patient is appropriate for discharge with referral for both a primary care physician as well as onto cardiology for further evaluation and management. Patient verbalized understanding and agreement. The patient was placed in observation status at 1510. Medical necessity for observational status is serial troponins. The patient was provided serial reevaluations continuous cardiac monitoring pulse oximetry while awaiting results. Given the length of time of his symptoms initial troponin was deemed sufficient as patient had complete resolution of his symptoms during observation time.. Total time in observation was 1 hour. I was consulted by the SABA, and we discussed the complexity of the problems being addressed. I approved the treatment and management plan for this patient's care in the Emergency Department, thus performing a substantive portion of the medical decision making. Merrick Crenshaw MD SABA attestation I was consulted by the SABA, and we discussed the complexity of problems being addressed. I approved the treatment and management plan for this patient's care in the emergency department, thus performing a substantial portion of the medical decision making. I also evaluated this patient at bedside after handoff from Dr. Crenshaw. I independently interpreted his EKG, revealing a normal sinus rhythm, no STEMI. Independently interpreted his CT PE, revealing of no acute pulmonary embolus or other acute cardiopulmonary pathology. Appropriate for discharge with PCP follow-up. He had reproducible chest pain on exam and hypertension. 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 To follow-up with PCP regarding antihypertensives. Raffy Goins MD <Merrick Crenshaw MD - Last Filed: 03/05/25 15:15> Dick Inquiry Pt receiving controlled substance: No Vital Signs Vital Signs: 03/05/25 14:15 03/05/25 14:30 03/05/25 15:01 Temperature 98.4 F Temperature Source Oral Pulse Rate 82 Pulse Rate [Left Radial] 93 H Respiratory Rate 20 27 H 18 Blood Pressure 198/109 H 182/103 H Blood Pressure [Right Arm] 225/117 H Blood Pressure Mean [Right Arm] 153 Blood Pressure Source Blood Pressure Position 02 Sat by Pulse Oximetry 98 99 Oxygen Delivery Method Room Air Room Air 03/05/25 15:30 03/05/25 16:08 Temperature 98.1 F Temperature Source Oral Pulse Rate 75 77 Pulse Rate [Left Radial] Respiratory Rate 12 20 Blood Pressure 179/101 H 185/100 H Blood Pressure [Right Arm] Blood Pressure Mean [Right Arm] Blood Pressure Source Automatic Cuff Blood Pressure Position Supine 02 Sat by Pulse Oximetry 98 Oxygen Delivery Method Room Air Room Air Lab Data Labs: Lab Results 03/05/25 14:15: WBC 6.7, RBC 4.71, Hgb 15.1, Hct 42.6, MCV 90.4, MCH 32.1 H, MCHC 35.4, RDW 12.6, Plt Count 293, MPV 9.3, Neut % (Auto) 73.3, Lymph % (Auto) 10.8, Keith % (Auto) 13.5 H, Eos % (Auto) 1.3, Baso % (Auto) 0.7, Neut # (Auto) 4.9, Lymph # (Auto) 0.7, Keith # (Auto) 0.9, Eos # (Auto) 0.1, Baso # (Auto) 0.1, D-Dimer 0.64 H, Sodium 127 L, Potassium 3.8, Chloride 94 L, Carbon Dioxide 27, Anion Gap 9.8, BUN 5 L, Creatinine 0.70, Estimated Creat Clear 131, Estimated GFR 116, Est GFR ( Amer) 141, Glucose 134 H, Calcium 9.0, Magnesium 1.9, Total Bilirubin 1.5 H, AST 56, ALT 44, Alkaline Phosphatase 74, Troponin I < 0.01, NT-Pro-B Natriuret Pep 46.9, Total Protein 8.3 H, Albumin 5.2 H, Globulin 3.1, Albumin/Globulin Ratio 1.7, Procalcitonin 0.032, TSH 1.22, Free T4 Index 2.2 L, Thyroxine (T4) 6.0, T3 Uptake 37, Plasma/Serum Alcohol < 10 03/05/25 15:17: Urine Opiates Screen Negative, Urine Methadone Screen Negative, Ur Barbituates Screen Negative, Ur Phencyclidine Scrn Negative, Ur Amphetamines Screen Negative, U Benzodiazepines Scrn Negative, Urine Cocaine Screen Negative, U Marijuana (THC) Screen Negative 03/05/25 15:19: Urine Color Yellow, Urine Appearance Clear, Urine pH 7.5, Ur Specific [place] 1.015, Urine Protein Negative, Urine Glucose (UA) Negative, Urine Ketones Negative, Urine Blood Negative, Urine Nitrate Negative, Urine Bilirubin Negative, Urine Urobilinogen 0.2, Ur Leukocyte Esterase Negative, Urine RBC Occasional, Urine WBC Occasional, Ur Squamous Epith Cells Occasional 03/05/25 15:35: SARS-CoV-2 (PCR) Not detected, Influenza A Untype (PCR) Not detected, Influenza Type B (PCR) Not detected Response Orders (Tests/Meds): ED MEDICATIONS Discontinued Medications Generic Name Dose Route Start Last Admin Trade Name Freq PRN Reason Stop Dose Admin Acetaminophen 1,000 mg 03/05/25 14:19 03/05/25 14:29 Acetaminophen 500mg Tab PO 03/05/25 14:20 1,000 mg ONCE ONE Administration Diazepam 2.5 mg 03/05/25 14:19 03/05/25 14:29 Diazepam 5mg Tablet PO 03/05/25 14:20 2.5 mg ONCE ONE Administration Sodium Chloride 1,000 mls @ 999 mls/hr 03/05/25 14:19 03/05/25 14:30 Sod Chlor 0.9% 1000ml Bag IV 03/05/25 15:19 999 mls/hr .Q1H1M ONE Administration Iopamidol 70 ml 03/05/25 15:21 03/05/25 15:22 Iopamidol-370 (76%);100ml Bottle IV 03/05/25 15:22 70 ml ONCE ONE Administration Ketorolac Tromethamine 15 mg 03/05/25 14:19 03/05/25 14:29 Ketorolac 30mg/Ml Vial IV 03/05/25 14:20 15 mg ONCE ONE Administration Ondansetron HCl 4 mg 03/05/25 14:19 03/05/25 14:29 Ondansetron 4mg/2ml Vial IV 03/05/25 14:20 4 mg ONCE ONE Administration Sodium Chloride 10 ml 03/05/25 15:21 03/05/25 15:22 Sodium Chloride 0.9% 10ml Syr (Rad Only) IV 03/05/25 15:22 10 ml ONCE ONE Administration Sodium Chloride 50 ml 03/05/25 15:21 03/05/25 15:22 0.9 % Sodium Chloride 50 Ml Vial IV 03/05/25 15:22 50 ml ONCE ONE Administration ORDERS Category Date Time Status CT angio chest PE protocol Stat Cat Scan 03/05/25 15:14 Completed Chest XR 2 view (NOT portable) [XR chest 2V] Stat Exams 03/05/25 14:19 Completed BNP [NT Pro Brain Natriuretic Pep.] Stat Lab 03/05/25 14:15 Completed Blood alcohol [Ethyl Alcohol] Stat Lab 03/05/25 14:15 Completed CBC w/Auto Diff [Complete Blood Count Auto Diff] Stat Lab 03/05/25 14:15 Completed CMP [Comprehensive Metabolic Panel] Stat Lab 03/05/25 14:15 Completed D-Dimer Stat Lab 03/05/25 14:15 Completed HIV Combo Stat Lab 03/05/25 14:15 Received Hepatitis C Ab Qual. W/ RFX Stat Lab 03/05/25 14:15 Received Magnesium Stat Lab 03/05/25 14:15 Completed Procalcitonin Stat Lab 03/05/25 14:15 Completed Rapid PCR Covid and Flu A/B Stat Lab 03/05/25 15:35 Completed Thyroid Panel Stat Lab 03/05/25 14:15 Completed Trop I [Troponin I] Stat Lab 03/05/25 14:15 Completed Troponin I Q3H Lab 03/05/25 17:30 Ordered Troponin I Q3H Lab 03/05/25 20:30 Ordered UA [Urinalysis and Microscopic] Stat Lab 03/05/25 15:19 Completed UDS [Drug Screen,Urine] Stat Lab 03/05/25 15:17 Completed ECG Data Tracing #1: Attestation: I reviewed this ECG and interpreted as documented below: (Sinus rhythm 95 bpm with NC 157, QRS 86, QTc 396. Normal axis no acute ischemic change.) MDM Narrative Medical Decision Narrative: The patient was placed in observation status at 1510. Medical necessity for observational status is [serial troponins, observation for headache, intractable pain requiring repeat doses of medications, asthma exacerbation with multiple therapies, medical clearance, intoxication observation, psychiatric patient pending placement]. The patient was provided serial reevaluations [and cardiac monitoring] while awaiting results. [Results of testing during observation remarkable for:]. [Because of these results I feel the patient can be discharged with follow-up with her PCP versus I feel the patient requires admission due to]. Total time in observation was [total time]. I was consulted by the SABA, and we discussed the complexity of the problems being addressed. I approved the treatment and management plan for this patient's care in the Emergency Department, thus performing a substantive portion of the medical decision making. Merrick Crenshaw MD <Raffy Goins MD - Last Filed: 03/05/25 16:24> Vital Signs Vital Signs: 03/05/25 14:15 03/05/25 14:30 03/05/25 15:01 Temperature 98.4 F Temperature Source Oral Pulse Rate 82 Pulse Rate [Left Radial] 93 H Respiratory Rate 20 27 H 18 Blood Pressure 198/109 H 182/103 H Blood Pressure [Right Arm] 225/117 H Blood Pressure Mean [Right Arm] 153 Blood Pressure Source Blood Pressure Position 02 Sat by Pulse Oximetry 98 99 Oxygen Delivery Method Room Air Room Air 03/05/25 15:30 03/05/25 16:08 Temperature 98.1 F Temperature Source Oral Pulse Rate 75 77 Pulse Rate [Left Radial] Respiratory Rate 12 20 Blood Pressure 179/101 H 185/100 H Blood Pressure [Right Arm] Blood Pressure Mean [Right Arm] Blood Pressure Source Automatic Cuff Blood Pressure Position Supine 02 Sat by Pulse Oximetry 98 Oxygen Delivery Method Room Air Room Air Lab Data Labs: Lab Results 03/05/25 14:15: WBC 6.7, RBC 4.71, Hgb 15.1, Hct 42.6, MCV 90.4, MCH 32.1 H, MCHC 35.4, RDW 12.6, Plt Count 293, MPV 9.3, Neut % (Auto) 73.3, Lymph % (Auto) 10.8, Keith % (Auto) 13.5 H, Eos % (Auto) 1.3, Baso % (Auto) 0.7, Neut # (Auto) 4.9, Lymph # (Auto) 0.7, Keith # (Auto) 0.9, Eos # (Auto) 0.1, Baso # (Auto) 0.1, D-Dimer 0.64 H, Sodium 127 L, Potassium 3.8, Chloride 94 L, Carbon Dioxide 27, Anion Gap 9.8, BUN 5 L, Creatinine 0.70, Estimated Creat Clear 131, Estimated GFR 116, Est GFR ( Amer) 141, Glucose 134 H, Calcium 9.0, Magnesium 1.9, Total Bilirubin 1.5 H, AST 56, ALT 44, Alkaline Phosphatase 74, Troponin I < 0.01, NT-Pro-B Natriuret Pep 46.9, Total Protein 8.3 H, Albumin 5.2 H, Globulin 3.1, Albumin/Globulin Ratio 1.7, Procalcitonin 0.032, TSH 1.22, Free T4 Index 2.2 L, Thyroxine (T4) 6.0, T3 Uptake 37, Plasma/Serum Alcohol < 10 03/05/25 15:17: Urine Opiates Screen Negative, Urine Methadone Screen Negative, Ur Barbituates Screen Negative, Ur Phencyclidine Scrn Negative, Ur Amphetamines Screen Negative, U Benzodiazepines Scrn Negative, Urine Cocaine Screen Negative, U Marijuana (THC) Screen Negative 03/05/25 15:19: Urine Color Yellow, Urine Appearance Clear, Urine pH 7.5, Ur Specific [place] 1.015, Urine Protein Negative, Urine Glucose (UA) Negative, Urine Ketones Negative, Urine Blood Negative, Urine Nitrate Negative, Urine Bilirubin Negative, Urine Urobilinogen 0.2, Ur Leukocyte Esterase Negative, Urine RBC Occasional, Urine WBC Occasional, Ur Squamous Epith Cells Occasional 03/05/25 15:35: SARS-CoV-2 (PCR) Not detected, Influenza A Untype (PCR) Not detected, Influenza Type B (PCR) Not detected Response Orders (Tests/Meds): ED MEDICATIONS Discontinued Medications Generic Name Dose Route Start Last Admin Trade Name Freq PRN Reason Stop Dose Admin Acetaminophen 1,000 mg 03/05/25 14:19 03/05/25 14:29 Acetaminophen 500mg Tab PO 03/05/25 14:20 1,000 mg ONCE ONE Administration Diazepam 2.5 mg 03/05/25 14:19 03/05/25 14:29 Diazepam 5mg Tablet PO 03/05/25 14:20 2.5 mg ONCE ONE Administration Sodium Chloride 1,000 mls @ 999 mls/hr 03/05/25 14:19 03/05/25 14:30 Sod Chlor 0.9% 1000ml Bag IV 03/05/25 15:19 999 mls/hr .Q1H1M ONE Administration Iopamidol 70 ml 03/05/25 15:21 03/05/25 15:22 Iopamidol-370 (76%);100ml Bottle IV 03/05/25 15:22 70 ml ONCE ONE Administration Ketorolac Tromethamine 15 mg 03/05/25 14:19 03/05/25 14:29 Ketorolac 30mg/Ml Vial IV 03/05/25 14:20 15 mg ONCE ONE Administration Ondansetron HCl 4 mg 03/05/25 14:19 03/05/25 14:29 Ondansetron 4mg/2ml Vial IV 03/05/25 14:20 4 mg ONCE ONE Administration Sodium Chloride 10 ml 03/05/25 15:21 03/05/25 15:22 Sodium Chloride 0.9% 10ml Syr (Rad Only) IV 03/05/25 15:22 10 ml ONCE ONE Administration Sodium Chloride 50 ml 03/05/25 15:21 03/05/25 15:22 0.9 % Sodium Chloride 50 Ml Vial IV 03/05/25 15:22 50 ml ONCE ONE Administration ORDERS Category Date Time Status CT angio chest PE protocol Stat Cat Scan 03/05/25 15:14 Completed Chest XR 2 view (NOT portable) [XR chest 2V] Stat Exams 03/05/25 14:19 Completed BNP [NT Pro Brain Natriuretic Pep.] Stat Lab 03/05/25 14:15 Completed Blood alcohol [Ethyl Alcohol] Stat Lab 03/05/25 14:15 Completed CBC w/Auto Diff [Complete Blood Count Auto Diff] Stat Lab 03/05/25 14:15 Completed CMP [Comprehensive Metabolic Panel] Stat Lab 03/05/25 14:15 Completed D-Dimer Stat Lab 03/05/25 14:15 Completed HIV Combo Stat Lab 03/05/25 14:15 Received Hepatitis C Ab Qual. W/ RFX Stat Lab 03/05/25 14:15 Received Magnesium Stat Lab 03/05/25 14:15 Completed Procalcitonin Stat Lab 03/05/25 14:15 Completed Rapid PCR Covid and Flu A/B Stat Lab 03/05/25 15:35 Completed Thyroid Panel Stat Lab 03/05/25 14:15 Completed Trop I [Troponin I] Stat Lab 03/05/25 14:15 Completed Troponin I Q3H Lab 03/05/25 17:30 Ordered Troponin I Q3H Lab 03/05/25 20:30 Ordered UA [Urinalysis and Microscopic] Stat Lab 03/05/25 15:19 Completed UDS [Drug Screen,Urine] Stat Lab 03/05/25 15:17 Completed MDM Narrative Medical Decision Narrative: In summary patient is a 59-year-old male who presents to the emergency department for evaluation of chest pain. Patient is initially significantly hypertensive with a blood pressure 225/117 with a heart rate of 93 breathing 20 times a minute satting at 98% on room air normal sinus rhythm on the bedside monitor upon arrival, and afebrile at 98.4. Physical exam is remarkable for Omar Coma Score 15, patient does appear to be slightly nervous but breath sounds clear and equal bilaterally to the bases without adventitious sounds cardiovascular's S1-S2 regular rate and rhythm without murmurs gallops rubs or thrills or dependent edema noted, abdomen soft nontender no rebound or guarding no rigidity. Bowel sounds normal active. Patient has no reproducible chest pain with palpation.. Differential diagnosis includes ACS versus hypertension emergency versus PE versus uncontrolled anxiety versus panic attack versus pneumonia etc. Initial workup will be conducted with hematologic labs twelve-lead EKG plain film chest x-ray CT PE protocol. Initial interventions include Tylenol Toradol Zofran 2.5 mg one-time dose of Valium. Initial workup reviewed by me shows that his hematologic labs are significant for normal white count normal H&H with no neutrophilic shift, sodium slightly low at 127 but his troponin is undetectable NT proBNP is 46.9 urinalysis is bland urine drug screen is negative alcohol is negative and my informal interpretation of his CT PE protocol shows no evidence of thrombus or acute intrathoracic process prior to radiology read. Please see final read for formal interpretation.. Upon repeat evaluation patient reported complete resolution of his symptoms however he was still remains hypertensive at 185/100. Given this patient is appropriate for discharge with referral for both a primary care physician as well as onto cardiology for further evaluation and management. Patient verbalized understanding and agreement. The patient was placed in observation status at 1510. Medical necessity for observational status is serial troponins. The patient was provided serial reevaluations continuous cardiac monitoring pulse oximetry while awaiting results. Given the length of time of his symptoms initial troponin was deemed sufficient as patient had complete resolution of his symptoms during observation time.. Total time in observation was 1 hour. I was consulted by the SABA, and we discussed the complexity of the problems being addressed. I approved the treatment and management plan for this patient's care in the Emergency Department, thus performing a substantive portion of the medical decision making. Merrick Crenshaw MD SABA attestation I was consulted by the SABA, and we discussed the complexity of problems being addressed. I approved the treatment and management plan for this patient's care in the emergency department, thus performing a substantial portion of the medical decision making. I also evaluated this patient at bedside after handoff from Dr. Crenshaw. I independently interpreted his EKG, revealing a normal sinus rhythm, no STEMI. Independently interpreted his CT PE, revealing of no acute pulmonary embolus or other acute cardiopulmonary pathology. Appropriate for discharge with PCP follow-up. He had reproducible chest pain on exam and hypertension. 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 To follow-up with PCP regarding antihypertensives. Raffy Goins MD
--- NOTE | 2025-03-05 14:19 | XR_ITS ---
FINAL REPORT TECHNIQUE: Chest PA & Lateral CLINICAL HISTORY: Chest pain COMPARISON: 03/15/2018 FINDINGS: 2 views of the chest were performed. The heart size is normal. The mediastinum is within normal limits. There are mild chronic interstitial opacities. There is no acute cardiopulmonary process. There are no pleural effusions. There is no pneumothorax. The bony thorax appears intact. IMPRESSION: No acute cardiopulmonary process. Reviewed, Interpreted and Dictated by Alejandro Escamilla MD Transcribed by Rose Marie Cantu Authenticated and [facility][1]
[2025-03-05] MEDS: ACETAMINOPHEN 500MG TAB 1000 MG PO (14:29)
[2025-03-05] MEDS: diazePAM 5MG TABLET 2.5 MG PO (14:29)
[2025-03-05] MEDS: KETOROLAC 30MG/ML VIAL 15 MG IV (14:29)
[2025-03-05] MEDS: ONDANSETRON 4MG/2ML VIAL 4 MG IV (14:29)
[2025-03-05 14:30] VITALS: BP 198/109; RESP 27
[2025-03-05 14:30] LABS: Basophils # 0.1 K/mm3 (0-0.2); Basophils % 0.7 % (0.1-2.0); Eosinophils # 0.1 Kmm3 (0.0-0.4); Eosinophils % 1.3 % (0.1-12.0); Hematocrit 42.6 % (42.0-52.0); Hemoglobin 15.1 g/dL (14.1-18.0); Lymphocytes # 0.7 K/mm3 (0.7-4.5); Lymphocytes % 10.8 % (10-50); Mean Corpuscular HGB Conc 35.4 g/dL (31.8-35.4); Mean Corpuscular Hemoglobin 32.1 pg (27.0-31.2); Mean Corpuscular Volume 90.4 fl (80-94); Mean Platelet Volume 9.3 fl (7.4-10.4); Monocytes # 0.9 K/mm3 (0.1-1.0); Monocytes % 13.5 % (1.7-9.3); Neutrophils # 4.9 K/mm3 (1.8-7.8); Neutrophils % 73.3 % (37.0-80.0); Nucleated Red Blood Cells # 0 10^3/uL; Nucleated Red Blood Cells % 0 %; Platelet Count 293 K/mm3 (142-424); Red Blood Count 4.71 M/mm3 (4.60-6.20); Red Cell Distribution Width 12.6 % (11.5-17.5); Red Cell Distribution Width-SD 41.5 fL; White Blood Count 6.7 K/mm3 (4.8-10.8)
[2025-03-05] MEDS: 0.9 % SODIUM CHLORIDE 1000ML 1,000 ML 999 ML IV (14:30)
[2025-03-05 14:38] LABS: Alanine Aminotransferase 44 U/L (12-78); Albumin Level 5.2 g/dl (3.5-5.0); Albumin/Globulin Ratio 1.7 (1.1-1.8); Alkaline Phosphatase 74 U/L (38-126); Anion Gap 9.8 mEq/L (5-15); Aspartate Amino Transferase 56 U/L (17-59); Bilirubin,Total 1.5 mg/dl (0.2-1.3); Blood Urea Nitrogen 5 mg/dl (9-20); Carbon Dioxide 27 mmol/L (22.0-30.0); Chloride 94 mmol/L (98-107); Creatinine Clearance Estimated 131 mL/min (50-200); Estimated Glomerular Filt Rate 116 ml/min (>60); GFR (African American) 141 ML/MIN (>60); Globulin 3.1 g/dL (1.3-3.2); Glucose 134 mg/dl (74-100); Magnesium 1.9 mg/dl (1.6-2.3); Potassium 3.8 mmoL/L (3.5-5.1); Sodium 127 mmol/L (136-145); Total Protein,Serum 8.3 g/dl (6.3-8.2)
[2025-03-05 14:42] LABS: D-Dimer 0.64 ug/mL (0.0-0.5)
[2025-03-05 14:51] LABS: NT Pro Brain Natriuretic Pep. 46.9 pg/mL (0-125)
[2025-03-05 14:56] LABS: Procalcitonin 0.032 ng/mL (0.0-2.0)
[2025-03-05 15:00] LABS: Troponin I < 0.01 ng/ml (0.00-0.034)
[2025-03-05 15:01] VITALS: BP 182/103; PULSE 82; RESP 18; O2SAT 99
[2025-03-05 15:13] LABS: Ethyl Alcohol < 10 mg/dl (0-10)
--- NOTE | 2025-03-05 15:14 | CT_ITS ---
FINAL REPORT TECHNIQUE: The patient was injected with IV contrast. Axial images were obtained through the chest in a PE protocol. 3-D reconstruction images were also performed. Individualized dose reduction techniques using automated exposure control or adjustment of the MA and/or KV according to patient's size were employed. CLINICAL HISTORY: Chest pain COMPARISON: None FINDINGS: Mediastinal vasculature is adequately opacified. No pulmonary artery filling defects are identified to suggest PE. There is no aortic dissection. There is no axillary adenopathy. There is no hilar or mediastinal adenopathy. The heart size is normal. There is no pericardial or pleural effusion. Limited images of the upper abdomen are unremarkable. No suspicious infiltrate or nodule is identified. IMPRESSION: No pulmonary embolus or dissection. Reviewed, Interpreted and Dictated by Alejandro Escamilla MD Transcribed by Kaelyn Bustos Authenticated and . [facility]
[2025-03-05 15:21] LABS: Microscopic, Urine URINE MICROSCOPIC (MICROSCOPIC)
[2025-03-05 15:22] LABS: Appearance,Urine CLEAR (Clear); Bilirubin,Urine Negative (Negative); Blood, Urine Negative (Negative); Color,Urine YELLOW (Yellow); Glucose,Urine (UA) Negative (Negative); Ketones,Urine Negative (Negative); Leukocyte Esterase,Urine Negative (Negative); Nitrate,Urine Negative (Negative); PH,Urine 7.5 (5.0-8.5); Protein,Urine Negative (Negative); Specific Gravity, Urine 1.015 (1.005-1.030); Urobilinogen,Urine 0.2 EU/dl (0.2)
[2025-03-05] MEDS: SODIUM CHLORIDE 0.9% 10ML SYR (RAD ONLY) 10 ML IV (15:22)
[2025-03-05] MEDS: IOPAMIDOL-370 (76%);100ML BOTTLE 70 ML IV (15:22)
[2025-03-05] MEDS: 0.9 % SODIUM CHLORIDE 50 ML VIAL IV (15:22)
[2025-03-05 15:25] LABS: Free Thyroxine Index 2.2 ug/dL (5.93-13.13); Triiodothryronine (T3) Uptake 37 % (23.5-40.5)
[2025-03-05 15:30] VITALS: BP 179/101; PULSE 75; RESP 12; O2SAT 98
[2025-03-05 15:35] LABS: RBC,Urine Occasional #/hpf (0-3); Squamous Epithelial Cell,Urine Occasional #/hpf (0-5); WBC,Urine Occasional #/hpf (0-3)
[2025-03-05 15:36] LABS: Barbiturates Screen,Urine Negative ng/ml (<200); Benzodiazepines Screen,Urine Negative ng/ml (<200)
[2025-03-05 15:37] LABS: Amphetamine/Metha Screen,Urine Negative ng/ml (<1000)
[2025-03-05 15:38] LABS: Cannabinoid Screen,Urine Negative ng/ml (<50); Cocaine Screen,Urine Negative ng/ml (<300)
[2025-03-05 15:39] LABS: Coronavirus 19, PCR Not Detected (NotDetected); Influenza A, PCR Not Detected (NotDetected); Influenza B, PCR Not Detected (NotDetected)
[2025-03-05 15:39] LABS: Methadone Screen,Urine Negative ng/ml (<300); Opiate Screen,Urine Negative ng/ml (<300)
[2025-03-05 15:40] LABS: Thyroid Stimulating Hormone 1.22 uIU/mL (0.465-4.68)
[2025-03-05 15:40] LABS: Phencyclidine Screen,Urine Negative ng/ml (<25)
[2025-03-05 16:08] VITALS: BP 185/100; PULSE 77; RESP 20; TEMP 36.7; O2SAT 97
[2025-03-05 16:43] LABS: HIV Combo NEGATIVE (Negative)
[2025-03-05 16:50] LABS: Hepatitis C Ab Qual. W/ RFX NEGATIVE (Negative)
== END 2025-03-05 16:12 | disposition home or self-care (01) ==
PROVIDERS: Physician Assistant; Emergency Provider Emergency Medicine
DX: R07.2 Precordial pain (principal); I10 Essential (primary) hypertension; E87.1 Hypo-osmolality and hyponatremia; Z11.59 Encounter for screening for other viral diseases; Z11.4 Encounter for screening for human immunodeficiency virus [HIV]
CPT/HCPCS: 71046; 71275; 80053; 80307; 80320; 81001; 83735; 83880; 84145; 84436; 84443; 84479; 84484; 85025; 85378; 86803; 87389; 87636; 93005; 96361; 96374; 96375; 99285; J1885; J2405; J7030; Q9967

== ENCOUNTER 2025-03-28 15:22 | Outpatient (CLI) | payer MEDICARE, MEDICAID, SELFPAY ==
[2025-03-28 17:08] LABS: Hemoglobin A1C 4.8 % (4.0-6.0)
[2025-03-28 17:24] LABS: Chol/HDL Ratio 2.5 (1-3.5); Cholesterol 219 mg/dl (140-200); HDL Cholesterol 86 mg/dl (40-60); Triglycerides 70 mg/dl (30-150); VLDL Cholesterol 14 mg/dL (0-40)
[2025-03-28 17:35] LABS: Direct LDL Cholesterol 118.02 mg/dL (100-129)
== END 2025-03-28 23:59 | disposition home or self-care (01) ==
LOC: LAB.DROPOF 04-01 11:18
PROVIDERS: PCP Internal Medicine; Visit Provider Internal Medicine
DX: Z13.220 Encounter for screening for lipoid disorders (principal); Z13.1 Encounter for screening for diabetes mellitus
CPT/HCPCS: 80061; 83036

== ENCOUNTER 2025-06-16 11:58 | Day surgery (SDC) | payer MEDICARE, MEDICAID, SELFPAY ==
[2025-06-13 11:33] VITALS: BMI 23.3
[2025-06-16 12:31] VITALS: BP 149/92; PULSE 86; RESP 18; TEMP 36.3; O2SAT 98
[2025-06-16] MEDS: LACTATED RINGERS 1000ML 1,000 ML 50 ML IV (12:31)
--- NOTE | 2025-06-16 12:47 | P.PNANES_ITS ---
[facility] Disclaimer: The information contained in this section may have been updated after the patient was seen, as this information can be updated by other users. Medical History Irritable bowel syndrome (IBS) History of gastroesophageal reflux (GERD) Presence of surgical screw in right hand Hypertension Surgical History History of mandibular surgery Family History Other Family history of myocardial infarction Social History Smoking Status: Current every day smoker tobacco type: cigarettes packs per day: 1 alcohol intake: current alcohol intake frequency: a few times a month counseling provided: provider counseling substance use type: denies use current occupational status: employed Travel in the last 8 weeks?: None Have you lived/traveled outside [place] in past 30 days?: No Contact w/someone who lives/traveled outside [place] past 30 days?: No Exposure to someone with infectious disease in past 14 days?: No Do you have a fever (greater than 100.4 F or 38 C)?: No Have you tested positive for COVID-19?: No Exposed to someone with COVID-19 in past 14 days?: No Do you have a sore throat?: No Do you have a cough?: No Do you have any weakness?: No Do you have any diarrhea?: No Are you experiencing any unusual bleeding?: No Do you have any muscle aches/pain?: No Do you have any abdominal pain?: No Are you experiencing loss of taste or smell?: No [facility] Anesthesia Checklist Patient Identification Patient Identification: Arm Band Structural Data Admitted From: Home Planned Operative Procedure/s: Colonoscopy Consent for Planned Operative Procedure(s) Verified: Yes Verified Documents: Surgical Consent and History and Physical NPO Status Verified Time NPO: 00:00 Additional verifications Anesthesia Reactions: No Airway Assessment Mallampati Score:: Class II C-Spine Mobility Assessed: Yes TMJ Mobility Assessed: Yes Dentition: Poor Dentition Neurological Assessment Level of Consciousness: Awake, Alert and Appropriate Anesthesia Plan Anesthesia Risk discussed: Yes Anesthesia Plan: Verified ASA Class: II Anesthesia Type: MAC
--- NOTE | 2025-06-16 14:09 | EXP.HP ---
History of Present Illness *Admission Date: 06/16/25 *Reason for visit:: Screening for colon cancer *History of present illness: Mr. Ludwig is a 59-year-old gentleman who is here for screening colonoscopy. The examination is deemed medically necessary for screening colonoscopy. The patient has been seen, interviewed and examined prior to the procedure by both myself and the anesthesia provider. [facility] Disclaimer: The information contained in this section may have been updated after the patient was seen, as this information can be updated by other users. Medical History Irritable bowel syndrome (IBS) History of gastroesophageal reflux (GERD) Presence of surgical screw in right hand Hypertension Surgical History History of mandibular surgery Family History Other Family history of myocardial infarction Social History Smoking Status: Current every day smoker tobacco type: cigarettes packs per day: 1 alcohol intake: current alcohol intake frequency: a few times a month counseling provided: provider counseling substance use type: denies use current occupational status: employed Travel in the last 8 weeks?: None Have you lived/traveled outside [place] in past 30 days?: No Contact w/someone who lives/traveled outside [place] past 30 days?: No Exposure to someone with infectious disease in past 14 days?: No Do you have a fever (greater than 100.4 F or 38 C)?: No Have you tested positive for COVID-19?: No Exposed to someone with COVID-19 in past 14 days?: No Do you have a sore throat?: No Do you have a cough?: No Do you have any weakness?: No Do you have any diarrhea?: No Are you experiencing any unusual bleeding?: No Do you have any muscle aches/pain?: No Do you have any abdominal pain?: No Are you experiencing loss of taste or smell?: No Other Medical History Have you received the Flu Vaccine for this season: No Have you received the Pneumonia Vaccine: No Review of Systems Review of Systems Review of systems (narrative): Negative *Cardiovascular Comments: Negative *Gastrointestinal Comments: Negative *Genitourinary Comments: Negative *Musculoskeletal Comments: Negative *Neurologic Comments: Negative Meds Home Medications and Allergies Home Medications ?Medication ?Instructions ?Recorded ?Confirmed ?Type esomeprazole magnesium 20 mg 20 mg PO DAILY #30 caps 04/11/25 06/13/25 Rx capsule,delayed release telmisartan 40 mg tablet 40 mg PO DAILY #30 tabs 04/11/25 06/13/25 Rx amlodipine 10 mg tablet 10 mg PO DAILY #30 tabs 05/13/25 06/13/25 Rx prochlorperazine maleate 5 mg 5 mg PO TID PRN nausea and 05/13/25 06/13/25 Rx tablet (Compazine) vomiting #30 tabs New Prescriptions to Start Prescriptions: Allergies Allergy/AdvReac Type Severity Reaction Status Date / Time No Known Allergies Allergy Verified 06/16/25 12:28 Exam Data for Last 24 hours Vital signs and Labs for Last 24 Hours: Temp Pulse Resp BP Pulse Ox O2 Del Method 97.4 F L 86 18 149/92 H 98 Room Air 06/16/25 12:31 06/16/25 12:31 06/16/25 12:31 06/16/25 12:31 06/16/25 12:31 06/16/25 12:31 I & O for Last 24 hours: Intake & Output 06/13/25 06/14/25 06/15/25 06/16/25 23:59 23:59 23:59 23:59 Weight 145 lb *Routine HEENT Exam Head: Present normocephalic Eye: Present EOMI and PERRL ENT: Present mucous membranes moist *Routine Neck Exam Neck: Present supple *Routine Respiratory Exam Respiratory: Present CTA bilaterally *Routine Cardiovascular Exam Cardiovascular: Present RRR *Routine Abdominal Exam Abdominal: Present soft and normoactive bowel sounds; Absent tenderness *Routine Rectal Exam Rectal:: deferred *Routine Genitalia Exam Genitalia:: deferred *Routine Extremities Exam Extremities: Absent cyanosis, clubbing or edema *Routine Skin Exam Skin: Present warm; Absent rash *Routine Neurological Exam Neurological: Present alert and oriented X3 Assessment and Plan *Assessment and plan (1) Screening for colorectal cancer: Status: Acute Category: Medical Code(s): Z12.11 - Encounter for screening for malignant neoplasm of colon; Z12.12 - Encounter for screening for malignant neoplasm of rectum Plan A/P: 1. Screening for colon cancer is the preprocedural diagnosis. The patient will be anesthetized/sedated using MAC sedation. The patient has been seen and examined. Cardiac and lung assessment prior to the examination is stable. Proceed with planned screening colonoscopy.
--- NOTE | 2025-06-16 14:24 | HMH.PROCNOTE ---
[facility] Procedure Note Date: 06/16/25 Time: 14:41 Procedure Note:: Colonoscopy Procedure Report: Colonoscopy with cold snare polypectomy Endoscopist: Freddy Lugo II, MD Referring physician: Shane Giordano DO Date of Procedure: June 16, 2025 Equipment: Olympus [id number] adult colonoscope Sedation: MAC sedation Indication: Mr. Ludwig is a 59-year-old gentleman who is here for initial screening colonoscopy. The patient has had some longstanding dyspepsia with constipation, bloating, gassiness and epigastric soreness. He reports no rectal bleeding or weight loss. He does state that his maternal grandparents had colon cancer. Procedure: Prior to the procedure, a history and physical exam was performed, and patient's medications and allergies were reviewed. The risks, benefits and alternatives of the sedation and procedure were discussed with the patient. All questions were answered and informed consent was obtained. The patient was brought to the procedure room. Patient identification and proposed procedure were verified by the physician and the nurse. The patient was placed in a left lateral decubitus position and the scope was passed under direct vision. Throughout the procedure, the patient's blood pressure, pulse, and oxygen saturations were monitored continuously. The colonoscopy was accomplished without difficulty. The patient tolerated the procedure well. Findings: On digital rectal examination there was normal rectal tone. There were no external hemorrhoids. The colonoscope was introduced through the anal canal to the rectum and advanced to the cecum. The ileocecal valve and appendiceal orifice were identified. The scope was advanced a short distance into the ileum which appeared grossly normal. The scope was then withdrawn into the colon. There was a single transverse colon polyp (6 to 7 mm) that was removed via cold snare polypectomy. The remaining cecum, ascending, transverse, descending, sigmoid and rectum were grossly normal. There were no other mucosal abnormalities identified. Upon retroflexion within the rectum there were grade 2 internal hemorrhoids. The preparation was excellent throughout with Arnett Preparation Score of 9. The cecal time was 12 minutes. Impression: 1. Transverse colon polyp (6 to 7 mm) Plan: I will follow-up the polyp histology and recommend repeat surveillance colonoscopy again in 7 years if the polyp is adenomatous.
[2025-06-16 14:45] VITALS: BP 110/71; PULSE 76; RESP 16; TEMP 36.4; O2SAT 95
[2025-06-16 14:55] VITALS: BP 111/71; PULSE 77; RESP 18; O2SAT 95
[2025-06-16 15:05] VITALS: BP 121/81; PULSE 82; RESP 18; O2SAT 97
[2025-06-16 15:15] VITALS: BP 148/90; PULSE 95; RESP 16; O2SAT 97
== END 2025-06-16 15:15 | disposition home or self-care (01) ==
PROVIDERS: PCP Internal Medicine; Visit Provider Internal Medicine Gastroenterology
PROC: 0DJD8ZZ Inspection of Lower Intestinal Tract, Via Natural or Artificial Opening Endoscopic (ICD-10-PCS; CPT 45378; principal; 2025-06-16 13:30)
DX: Z12.11 Encounter for screening for malignant neoplasm of colon (principal); D12.3 Benign neoplasm of transverse colon; K21.9 Gastro-esophageal reflux disease without esophagitis; I10 Essential (primary) hypertension; F17.210 Nicotine dependence, cigarettes, uncomplicated; Z79.899 Other long term (current) drug therapy
CPT/HCPCS: 45385; J2003; J2704; J7120